=== PATIENT | female | born 1995 | race Caucasian/White ===

== ENCOUNTER 2023-06-05 12:04 | Emergency (ER) | payer SELFPAY ==
[2023-06-05] VITALS (10 sets, daily range): BP systolic 106–138; BP diastolic 59–96
--- NOTE | 2023-06-05 13:21 | ED.GENMED ---
History of Present Illness
<Crystal Moses PA-C - Last Filed: 06/08/23 00:12>
General
Chief Complaint: Chest Pain
Source: patient
Exam Limitations: none
Time Seen by Provider: 06/05/23 12:18
Nursing documentation reviewed up to this point in time: agreed with
Travel History
Have you had any contact with someone who has COVID-19?: No
Do you have any symptoms of coronavirus? Fever > 100 degrees, chills, cough, shortness of breath, sore throat, loss of taste or smell, muscle aches, or headache?: No
History of Present Illness
History of Present Illness:
Patient is a 28-year-old female with history of resting tachycardia, hypothyroid presenting for evaluation of chest pain with radiation to her jaw. Symptoms have been present for the past 2 days. Chest pain is somewhat pleuritic in nature, worse
when lying flat. Chest pain located across her entire chest. She denies any associated nausea, vomiting, diaphoresis, fever, chills. She denies any recent cough or viruses. She denies any recent travel, surgeries.
She follows with Dr. Flores for resting tachycardia with an unknown etiology. She takes a beta-jorge daily. She is on an OCP.
Phy Exam
<Crystal Moses PA-C - Last Filed: 06/08/23 00:12>
Physical Exam
Physical Exam:
General: Well appearing and non-toxic
Vitals: Vital signs stable, afebrile
HEENT: Atraumatic, normocephalic; pupils equal round reactive to light bilaterally, protecting airway
Neck: appears supple, no JVD
CV: Regular rate and rhythm, heart sounds normal, no evidence of cyanosis; no palpable tenderness to chest wall
Resp: No evidence of respiratory stress, lungs clear, no accessory muscle use
Abd: Soft, nontender, non-distended
Extremities: No deformities, no evidence of cyanosis or edema
Neuro: alert and oriented to person place time, speech normal, no focal neurologic
Psych: Normal affect
Skin: Intact, no rashes
Scores
<Crystal Moses PA-C - Last Filed: 06/08/23 00:12>
Heart Score for Chest Pain Patients
STEMI patient?: No
History: Slightly or Non-Suspicious
ECG: Nonspecific Repolarization
Age: </= 45 years
Risk Factors: No Risk Factors
Troponin: </= Normal Limit
Heart Score for Chest Pain Patients: 1
Heart Score Risk: 2.5% MACE over next 6 weeks
PE Wells Score
Symptoms of DVT: No
No alternative diagnosis better explains the illness: Yes
Tachycardia with pulse > 100: No
Immobilization (>=3 days) or surgery within previous 4 weeks: No
Prior history of DVT or pulmonary embolism: No
Presence of hemoptysis: No
Presence of malignancy: No
Pulmonary Embolism Risk Score: 6
Probability of PE: Pt is moderate risk
PERC Rule Criteria
Age <50 years: Yes
HR <100 bpm: Yes
Room air oxygen sat >94%: Yes
History of DVT or PE: No
Recent trauma or surgery: No
Hemoptysis: No
Exogenous estrogen: Yes
Clinical signs suggestive of DVT: No
: No
Considered low risk for PE: Yes
PERC Score: 1
PE can be excluded by PERC: No
Course
<Crystal Moses PA-C - Last Filed: 06/08/23 00:12>
Orders/Labs/Results
Orders:
Orders
06/05/23 12:07
Electrocardiogram (*1) Urgent
Reason for Study: Chest Pain
EKG- Treatment ONCE
06/05/23 13:08
Ketorolac [Toradol] 15 mg IV NOW STA
06/05/23 13:24
CRP [C-Reactive Protein] Urgent
Complete Blood Count/With Diff Urgent
Comprehensive Metabolic Panel Urgent
D-Dimer Urgent
ESR [Erythrocyte Sed Rate] Urgent
HCG, Serum Qualitative Screen Urgent
Comment: ADD ON
Troponin I Urgent
06/05/23 14:07
Add On- LAB Urgent
Tests Added?: Serum hcg- qualitative
06/05/23 14:11
CT Chest Pe Study Urgent
Comment:
Reason For Exam: chest pain, elevated d-dimer
Abnormal Lab Results
06/05/23
13:24
Absolute Monos (auto) 0.7 H 10^3/uL
(0.1-0.6)
Lymphocytes % 17.9 L %
(20.5-51.1)
ESR 31 H mm/hour
(0-20)
D-Dimer 1.35 H ug/mlFEU
(0.00-0.50)
C-Reactive Protein 52.40 H mg/L
(0.0-10.00)
06/05/23 13:24
06/05/23 13:24
Vital Signs
Initial and Last Documented VS:
Initial Vital Signs
Temp Pulse Resp BP Pulse Ox
98.6 F 93 18 138/91 99
06/05/23 12:05 06/05/23 12:05 06/05/23 12:05 06/05/23 12:05 06/05/23 12:05
Last Documented Vital Signs
Temp Pulse Resp BP Pulse Ox
98.6 F 89 16 126/75 99
06/05/23 12:05 06/05/23 17:40 06/05/23 15:45 06/05/23 17:40 06/05/23 12:05
<Tima Ramon DO - Last Filed: 06/07/23 01:29>
Orders/Labs/Results
Orders:
Orders
06/05/23 12:07
Electrocardiogram (*1) Urgent
Reason for Study: Chest Pain
EKG- Treatment ONCE
06/05/23 13:08
Ketorolac [Toradol] 15 mg IV NOW STA
06/05/23 13:24
CRP [C-Reactive Protein] Urgent
Complete Blood Count/With Diff Urgent
Comprehensive Metabolic Panel Urgent
D-Dimer Urgent
ESR [Erythrocyte Sed Rate] Urgent
HCG, Serum Qualitative Screen Urgent
Comment: ADD ON
Troponin I Urgent
06/05/23 14:07
Add On- LAB Urgent
Tests Added?: Serum hcg- qualitative
06/05/23 14:11
CT Chest Pe Study Urgent
Comment:
Reason For Exam: chest pain, elevated d-dimer
Abnormal Lab Results
06/05/23
13:24
Absolute Monos (auto) 0.7 H 10^3/uL
(0.1-0.6)
Lymphocytes % 17.9 L %
(20.5-51.1)
ESR 31 H mm/hour
(0-20)
D-Dimer 1.35 H ug/mlFEU
(0.00-0.50)
C-Reactive Protein 52.40 H mg/L
(0.0-10.00)
06/05/23 13:24
06/05/23 13:24
Vital Signs
Initial and Last Documented VS:
Initial Vital Signs
Temp Pulse Resp BP Pulse Ox
98.6 F 93 18 138/91 99
06/05/23 12:05 06/05/23 12:05 06/05/23 12:05 06/05/23 12:05 06/05/23 12:05
Last Documented Vital Signs
Temp Pulse Resp BP Pulse Ox
98.6 F 89 16 126/75 99
06/05/23 12:05 06/05/23 17:40 06/05/23 15:45 06/05/23 17:40 06/05/23 12:05
<Crystal Moses PA-C - Last Filed: 06/08/23 00:12>
MDM/Problems Addressed
Differential Diagnosis Includes:
costochondritis, muscular strain, pericarditis, myocarditis, PE, doubt ACS
MDM/Problems Addressed:
Patient is a 28-year-old female with history of tachycardia of unknown etiology presenting for evaluation of substernal chest pain rating to her jaw for the past 2 days. Pain is worse when lying flat and somewhat pleuritic in nature. She does also
endorse headache�symptomatic in the past. She denies any associated shortness of breath, nausea, vomiting, diaphoresis, fevers, chills. She denies any recent virus, illness, coughing. She has had no recent travel or surgeries. She is
hemodynamically stable, afebrile. Heart rate in upper 90s�baseline per patient. Although she does take a beta-jorge daily. She is relatively well-appearing. Pain is worse when laying flat. Heart rate regular rhythm, lungs clear. No chest
wall tenderness to palpation. She is neurologically intact.
Will check basic labs, troponin, . Given borderline tachycardia, pleuritic chest pain, and OCP use-will check D-dimer to rule out pulmonary embolism. Will give IM Toradol.
EKG with some subtle diffuse ST elevations and mild [place] depressions�concern for possible pericarditis. Will add on ESR and CRP. Patient's headache improved with Toradol.
CBC without any clinically significant abnormalities. CMP without any clinically significant abnormalities. Troponin negative. hCG negative D-dimer elevated 1.35. Will order CTA chest.
ESR elevated 31 and CRP elevated 50.4�consistent with possible pericarditis picture. Chest CT negative for any evidence of pulmonary embolism or dissection.
Given symptoms, EKG, elevated inflammatory markers�suspect this is probable parotitis. Discussed with cardiology. They recommend colchicine and ibuprofen prescription and follow-up outpatient in a few days. She is stable for discharge with close
cardiology follow-up, return precautions. Patient comfortable this plan. All questions answered.
Chronic conditions affecting care:
Tachycardia
Acute Exacerbation and/or Progression of Chronic Illness:
Pericarditis
<Crystal Moses PA-C - Last Filed: 06/08/23 00:12>
*Radiology
Radiology exam reviewed: radiology read reviewed
*Pulse Oximetry
Patient hypoxic: no
*EKG
Interpreted by ED Provider?: Yes
EKG Intrepretation Date: 06/05/23
Interpretation: normal
Comparison EKG: no comparison EKG present
Heart Rate: 90
Rate: normal
Rhythm: sinus
[place]: normal axis
Interval: normal interval
QRS Pattern: normal QRS
Ischemia: non-specific ST changes
*Hand Tufter Interpretation
Rate: normal
Interpretation: normal
Heart Rate: 88
Rhythm: sinus
*Critical Care Note
Total Time (30-74mins, 75-104mins- exclusive of procedures): Not Applicable
ED Attending Note
<Crystal Moses PA-C - Last Filed: 06/08/23 00:12>
-
Portions of this chart may have been created with voice recognition software.� Occasional wrong word or��sound alike� substitutions may have occurred due to the inherent limitations of voice recognition software.
<Tima Ramon DO - Last Filed: 06/07/23 01:29>
ED Attending Note
Patient seen and examined by attending physician: Yes
I performed the substantive portion of visit, reviewed & personally made and approve the management plan that is documented in note by myself or RAMO.: Yes
I performed a history and physical exam of patient and discussed management with resident, I reviewed resident's note and agree with documented findings and plan of care.: Yes
ED Attending Note:
I evaluated the patient at bedside. The patient does have some pain that worsens when she lays down flat. EKG was reviewed which shows very subtle ST elevation in the precordial leads along with some very questionable [place] depression in lead II. We
talked about the possibility of pericarditis. Check labs and reassess. The patient does have a history of tachycardia on beta-jorge and is known to Dr. Flores.
Discharge Plan
Departure
Patient Disposition: Home (Routine Discharge)
Date of Disposition: 06/05/23
Time of Disposition: 17:20
Patient with high blood pressure during this ER visit?: Yes
Condition: Good
Covid-19: Not Applicable
Discharge Problem:
Pericarditis
Instructions: Chest Pain (DC), Pericarditis, Adult (DC), Chest Pain CBC Follow Up, BLOOD PRESSURE
Prescriptions:
New
colchicine 0.6 mg capsule
0.6 mg PO BID Qty: 14 0RF
ibuprofen 600 mg tablet
600 mg PO TID Qty: 21 0RF
Referrals:
Danuta Alfaro DO [Family Provider] - As needed
Tre Flores MD [Active] - Next open appointment
Activity Restrictions/Additional Instructions:
-Return to the emergency department with any high fevers, worsening in chest pain, shortness of breath, severe back pain, dizziness/lightheadedness, worsening in current symptoms, or any other concerns
-Your prescriptions have been sent to your pharmacy. The colchicine may cause diarrhea. If you experience significant diarrhea - call the cardiology office and they will decrease your dose.
-You should receive a call from the cardiology office for an appointment in the next two days.
Interventions
Interventions:
*Risk Screen - Suicide Last Done: 06/05/23 12:05
*General Assessment Last Done: 06/05/23 12:05
*Neglect/Abuse Screening Last Done: 06/05/23 12:05
ED- Fall Risk Assessment Last Done: 06/05/23 12:24
*ED COVID-19 Vaccine History Last Done: 06/05/23 12:05
*Nursing Disposition Last Done: 06/05/23 17:40
ED- Cardiac Assessment Last Done: 06/05/23 12:24
Discharge Date and Time
Discharge Date/Time: 06/05/23 17:40
[2023-06-05] MEDS: TORADOL 15 MG IV (13:24)
[2023-06-05 13:40] LABS: % Basophils 0.7 % (0-2); % Eosinophils 2.1 % (0-6); % Immature Granulocytes 0.1 % (0-0.5); % Lymphocytes 17.9 % (20.5-51.1); % Monocytes 7.4 % (1.7-9.3); % Neutrophils 71.8 % (42.2-75.2); Absolute Basophils 0.1 10^3/uL (0-0.2); Absolute Eosinophils 0.2 10^3/uL (0-0.7); Absolute Lymphocytes 1.6 10^3/uL (1.2-3.4); Absolute Monocytes 0.7 10^3/uL (0.1-0.6); Absolute Neutrophils 6.4 10^3/uL (1.4-6.5); Hematocrit 39.8 % (37.0-47.0); Hemoglobin 13.4 g/dL (12.0-16.0); Mean Corp Hgb Conc. 33.7 g/dL (33.0-37.0); Mean Corpuscular Hgb 29.5 pg (27.0-31.0); Mean Corpuscular Volume 87.5 fL (81.0-99.0); Mean Platelet Volume 9.4 fL (7.4-10.4); Nucleated Red Blood Cells % 0 %; Platelet Count 275 10^3/uL (130-400); Red Blood Cell Count 4.55 10^6/uL (4.20-5.40); Red Cell Dist. Width 12.7 % (11.5-14.5); White Blood Cell Count 8.9 10^3/uL (4.8-10.8)
[2023-06-05 13:49] LABS: ALT (SGPT) 17 U/L (0-35); AST (SGOT) 26 U/L (14-36); Albumin 4.2 g/dl (3.5-5.0); Alkaline Phosphatase 72 U/L (38-126); Blood Urea Nitrogen 12 mg/dl (7-17); Carbon Dioxide 23 mmol/L (22-30); Chloride 106 mmol/L (98-107); Glucose 89 mg/dl (70-99); Sodium 135 mmol/L (135-145); Total Bilirubin 0.8 mg/dl (0.2-1.3); Total Protein 7.4 g/dl (6.3-8.2); eGFR > 60.00
[2023-06-05 13:58] LABS: D-Dimer 1.35 ug/mlFEU (0.00-0.50); Troponin I < 0.012 ng/ml
[2023-06-05 14:09] LABS: Erythrocyte Sed Rate 31 mm/hour (0-20)
[2023-06-05 14:34] LABS: HCG, Serum Qualitative Screen Negative
== END 2023-06-05 17:40 | disposition home or self-care (01) ==
LOC: EMR 12:04
PROVIDERS: Physician Assistant; EMERGENCY PHYSICIAN Emergency Medicine; FAMILY PHYSICIAN Family Medicine
DX: I31.9 Disease of pericardium, unspecified (principal); R07.89 Other chest pain; E03.9 Hypothyroidism, unspecified; Z92.3 Personal history of irradiation
CPT/HCPCS: 99284; 96374; 71275; 80053; 84484; 84703; 85025; 85379; 85652; 86140; 93005; Q9967

== ENCOUNTER → 2023-12-19 14:49 | Outpatient (REF) | payer BC, SELFPAY | LOC: WDC 14:49 | PROVIDERS: ATTENDING PHYSICIAN Obstetrics & Gynecology; FAMILY PHYSICIAN Family Medicine | DX: N63.0 Unspecified lump in unspecified breast (principal) | CPT/HCPCS: 76642 ==

== ENCOUNTER → 2024-11-22 14:48 | Outpatient (REF) | payer BC, SELFPAY | LOC: HWRCS 14:48 | PROVIDERS: ATTENDING PHYSICIAN Internal Medicine Cardiovascular Disease; FAMILY PHYSICIAN Family Medicine | DX: R00.2 Palpitations (principal) | CPT/HCPCS: 93306 ==